=== PATIENT | male | born 1995 | race Caucasian/White ===

== ENCOUNTER 2019-01-07 08:48 | Observation (INO) ==
--- NOTE | 2019-01-07 08:50 | Emergency Department Note ---
Disposition Clinical Impression: Hypoxia Aspiration pneumonia Qualifiers: Aspiration pneumonia type: unspecified Laterality: right Lung location: lower lobe of lung Qualified Code(s): J69.0 - Pneumonitis due to inhalation of food and vomit Disposition: Admitted As Inpatient Condition: Fair Referrals: Robin Carlos MD [Primary Care Provider] - Forms: ED Satisfaction Letter SOB HPI - General Chief Complaint: ED Shortness of Breath/Dyspnea Stated Complaint: SHORTNESS OF BREATH Time Seen by Provider: 01/07/19 08:50 Source: patient, EMS Mode of arrival: EMS Limitations: altered mental status (Chronic) Nursing Notes Reviewed: Yes Vital Signs Reviewed: Yes - History of Present Illness Patient was evaluated yesterday for possible esophageal meat impaction. He is advised he waited in this facility transfer to [facility]. Delvin tolbert did undergo endoscopy with a completely normal esophagus, stomach and duodenum. [facility]. Today he had increased shortness of breath with a 4 L oxygen requirement. He is usually not on oxygen. He indicated that he had "junky" breathing. He was rapidly went without production of phlegm. His been brought in by EMS for evaluation and they have performed airway suctioning and reported a large amount of white phlegm. On arrival to our department the patient articulates that he is "a whole lot better". He denies chest pain or current shortness of breath. He denies fevers or chills. He states everything is "chest congestion". He indicates he is now swallowing without difficulty and that that is "doing a lot better". In being in our emergency department and [facility] he has likely been exposed to influenza A. He does not appear ill exposures. He is not having abdominal pain, nausea, vomiting or diarrhea. He denies a new extremity complaints. Pt Subjective Complaint: shortness of breath Onset (ago): day(s) (1) Context: recent illness, choking/aspiration Severity: moderate Consistency/Duration: now resolved Improves with: upright position, other (Suctioning) Worsens with: coughing Known history of: other (Post trach, traumatic brain injury) Associated symptoms: Reports: cough, sputum production. Denies: chest pain, pain with inspiration, fever, wheezing, orthopnea, lower extremity pain, polyuria, polydipsia, parasthesias, palpitations, hemoptysis, diaphoresis, nausea/vomiting, syncope, abdominal pain, rash Treatment prior to arrival: oxygen, other (Airway suctioning) Cough present: Yes Cough Description: Weak, Rattling Cough Frequency: Intermittent Sputum production: Yes Sputum Amount: Scant Sputum Color: White - Related Data Home oxygen amount: none Home Medications Medication Instructions Recorded Confirmed DULoxetine [Cymbalta] 30 mg PO BID 01/06/19 01/07/19 Famotidine [Pepcid] 20 mg PO DAILY 01/06/19 01/07/19 Gabapentin [Neurontin] 300 mg PO TID 01/06/19 01/07/19 Guaifenesin [Guaifenesin ER] 1,200 mg PO BID 01/06/19 01/07/19 LevETIRAcetam [Keppra] 500 mg PO TID 01/06/19 01/07/19 OLANZapine [Zyprexa] 5 mg PO BID 01/06/19 01/07/19 Oxycodone HCl [Oxaydo] 5 mg PO Q4H PRN 01/06/19 01/07/19 Quetiapine Fumarate [Seroquel] 50 mg PO DAILY 01/06/19 01/07/19 clonazePAM [Klonopin] 1 mg PO TID 01/06/19 01/07/19 Previous Rx's Medication Instructions Recorded Mag Hydrox/Al Hydrox/Simeth 15 ml PO Q6HR PRN #150 c 01/06/19 [Maalox] Allergies Allergy/AdvReac Type Severity Reaction Status Date / Time Penicillins Allergy Swelling Verified 01/06/19 21:02 of Lip/Tongue/Throat All systems ED: reviewed and negative except as stated. Past Medical History - Past Medical History Attestation: Yes The following information was validated with the patient. Source: old records reviewed, nursing notes reviewed Medical history: Reports: GERD, seizures, other (Traumatic brain injury, chronic respiratory insufficiency, elevated BMI) Surgical history: Reports: tracheostomy Psychiatric history: Reports: bipolar, schizophrenia - Social History Smoking Status: Never smoker Alcohol use: Reports: none Drug use: Reports: none Physical Exam - General Limitations: physical limitation General appearance: alert, in no apparent distress - Head Head exam: atraumatic, normocephalic, normal inspection - Eye Eye exam: Present: normal appearance, PERRL, EOMI. Absent: conjunctival injection - ENT ENT exam: normal exam, normal oropharynx, mucous membranes moist - Neck Neck exam: Present: normal inspection, full ROM, trachea midline, other (Stoma is without inflammatory change or blood/mucus around the stoma.) - Chest Chest inspection: Present: normal inspection, symmetric chest wall rise - Respiratory Respiratory exam: Present: other (Contacted upper airway sounds). Absent: respiratory distress, wheezes, prolonged expiratory phase Course Course Narrative: Patient is continuing to need to liters nasal cannula to support an oxygenation of 92%. He does not have a chronic oxygen dependency. With the congestion, recent possible esophageal obstruction or aspiration and relative hypoxia I believe he will need antibiotic coverage and observation. Baseline laboratory, IV fluids and antibiotics and ordered. A page has been placed to Dr. Carlos for inpatient observation. Vital Signs Temperature 99.4 F 01/07/19 08:52 Pulse Rate 95 01/07/19 08:52 Respiratory Rate 20 01/07/19 08:52 Blood Pressure 124/79 01/07/19 08:52 O2 Sat by Pulse Oximetry 98 01/07/19 08:52 Temperature 99.4 F 01/07/19 08:52 Pulse Rate 95 01/07/19 08:52 Respiratory Rate 20 01/07/19 08:52 Blood Pressure 124/79 01/07/19 08:52 O2 Sat by Pulse Oximetry 98 01/07/19 08:52 Oxygen Delivery Oxygen Delivery Nasal Cannula Shortness of Breath/Dyspnea - Differential Diagnosis Likely: acute exacerbation of chronic obstructive airways disease, pneumonia (Possible aspiration) - Medical Records Medical records reviewed: Yes I reviewed the patient's medical records. - Radiology Data Radiology results reviewed: Yes I reviewed the patient's radiology results. Single view chest x-rays performed. His demonstrates a poor inspiration with some vascular crowding. Question if there is a faint infiltrate in the right upper lobe. Patient's spine is scoliotic. Cardiac silhouette is slightly enlarged. This is on my interpretation. Impressions Chest X-Ray 01/07/19 09:02 IMPRESSION: Vascular congestion, with right perihilar disease, favored to be due to atelectasis, less likely pneumonia or focal edema. D/ / Vignesh Bennett MD / Vignesh Bennett MD Interpreting Provider: Vignesh Bennett MD Critical Care Time Critical Care Time: No
[2019-01-07] MEDS ORDERED: Azithromycin 500 MG in D5% in Water 250 ML IVPB ONE ×2 (09:41→12:39)
[2019-01-07] MEDS ORDERED: cefTRIAXone 2,000 MG in 0.9 % Sodium Chloride Mini Bag 100 ML IVPB ONE (09:41)
[2019-01-07] MEDS ORDERED: 0.9 % Sodium Chloride 1,000 ML IVC SCH (09:45)
[2019-01-07 10:31] LABS: Basophils % 0.2 %; Hematocrit 43.7 % (37.5-50.1); Hemoglobin 14.6 g/dL (12.9-16.9); Immature Granulocytes % 0.4 % (0-4); Lymphocytes % 5.1 %; Mean Corpuscular HGB Conc 33.4 g/dL (31.6-35.5); Mean Corpuscular Hemoglobin 29.9 pg (28.0-33.3); Mean Corpuscular Volume 89.4 fL (83.0-100.0); Mean Platelet Volume 10.6 fL (9.4-12.4); Monocytes # 1.4 K/mcL (0.0-1.3); Monocytes % 6.8 %; Platelet Count 270 K/mcL (140-400); Red Blood Count 4.89 M/mcL (4.19-5.50); Red Cell Distribution Width 12.3 % (11.5-14.5); Segmented Neutrophils % 87.5 %
[2019-01-07 10:41] LABS: Lymphocytes # 1.1 K/mcL (0.6-4.6)
[2019-01-07 10:51] LABS: BUN/Creatinine Ratio 17 (6-26); Blood Urea Nitrogen 8 mg/dL (6-20); Calcium 9.6 mg/dL (8.6-10.3); Carbon Dioxide 30 mEq/L (23-29); Chloride 103 mEq/L (98-107); Glucose 106 mg/dL (70-105); Osmolality,Calculated 295 (280-300); Potassium 4.2 mEq/L (3.5-5.1); Sodium 143 mEq/L (136-145); eGFR For Non-African Americans > 60 (> 60)
[2019-01-07] MEDS ORDERED: *HR* OxyCODONE Immed Rel 5 MG TABLET PO PRN (12:39)
[2019-01-07] MEDS ORDERED: Naloxone 0.4 MG/ML INJ IVP PRN (12:39)
[2019-01-07] MEDS ORDERED: Mag Hydrox/Al Hydrox/Simeth 30 ML UDC PO PRN (12:39)
[2019-01-07] MEDS ORDERED: Albuterol 2.5 MG/3 ML NEBULIZER IH PRN (12:39)
[2019-01-07] MEDS ORDERED: Ipratropium/Albuterol Neb 3 ML ONE (12:45)
[2019-01-07] MEDS: Ipratropium/Albuterol Neb 3 ML IH SCH ×2 (13:01→16:45)
[2019-01-07] MEDS: Azithromycin 500 MG in D5% in Water 250 ML IVPB SCH (13:09)
[2019-01-07] MEDS: 0.9 % Sodium Chloride 1,000 ML IVC SCH ×2 (13:10→22:27)
[2019-01-07] MEDS ORDERED: Isovue-370 500 ML BOTTLE IVP ONE ×2 (13:19→15:15)
[2019-01-07] MEDS ORDERED: Levofloxacin 750 MG/150 ML 750 MG/150 ML BAG IVPB SCH (15:00)
[2019-01-07] MEDS: levETIRAcetam 250 MG TABLET PO SCH ×2 (16:24→22:24)
[2019-01-07] MEDS: Gabapentin 300 MG CAPSULE PO SCH ×2 (16:24→22:24)
[2019-01-07] MEDS: clonazePAM 0.5 MG TABLET PO SCH ×2 (16:24→22:25)
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
[2019-01-07] MEDS: Clindamycin 600 MG/50 ML 600 MG/50 ML IV.SOLN IVPB SCH (22:23)
[2019-01-07] MEDS: OLANZapine 5 MG TAB.RAPDIS PO SCH (22:25)
[2019-01-07] MEDS: Lactobacillus 1 EACH CAP.SPRINK PO SCH (22:27)
[2019-01-08] MEDS: Clindamycin 600 MG/50 ML 600 MG/50 ML IV.SOLN IVPB SCH (02:06)
[2019-01-08] MEDS ORDERED: *HR* Enoxaparin 40 MG/0.4 ML SYRINGE SQ SCH (07:00)
[2019-01-08 07:06] LABS: Basophils % 0.4 %; Eosinophils # 0.1 K/mcL (0.0-0.6); Eosinophils % 0.8 %; Hematocrit 39.9 % (37.5-50.1); Hemoglobin 13.4 g/dL (12.9-16.9); Immature Granulocytes % 0.2 % (0-4); Lymphocytes # 1.9 K/mcL (0.6-4.6); Lymphocytes % 19.4 %; Mean Corpuscular HGB Conc 33.6 g/dL (31.6-35.5); Mean Corpuscular Hemoglobin 29.4 pg (28.0-33.3); Mean Corpuscular Volume 87.5 fL (83.0-100.0); Mean Platelet Volume 10.5 fL (9.4-12.4); Monocytes % 9.6 %; Platelet Count 219 K/mcL (140-400); Red Blood Count 4.56 M/mcL (4.19-5.50); Red Cell Distribution Width 12.4 % (11.5-14.5); Segmented Neutrophils % 69.6 %
[2019-01-08 07:12] VITALS: BP 117/83
[2019-01-08 07:21] LABS: BUN/Creatinine Ratio 21 (6-26); Blood Urea Nitrogen 8 mg/dL (6-20); Carbon Dioxide 28 mEq/L (23-29); Chloride 103 mEq/L (98-107); Glucose 99 mg/dL (70-105); Osmolality,Calculated 288 (280-300); Potassium 3.7 mEq/L (3.5-5.1); Sodium 140 mEq/L (136-145); eGFR For Non-African Americans > 60 (> 60)
[2019-01-08] MEDS: OLANZapine 5 MG TAB.RAPDIS PO SCH (07:52)
[2019-01-08] MEDS: levETIRAcetam 250 MG TABLET PO SCH (07:52)
[2019-01-08] MEDS: Lactobacillus 1 EACH CAP.SPRINK PO SCH (07:52)
[2019-01-08] MEDS: Gabapentin 300 MG CAPSULE PO SCH (07:52)
[2019-01-08] MEDS: clonazePAM 0.5 MG TABLET PO SCH (07:53)
[2019-01-08] MEDS ORDERED: Clindamycin 600 MG/50 ML 600 MG/50 ML IV.SOLN IVPB SCH (08:00)
[2019-01-08] MEDS ORDERED: Famotidine 20 MG TABLET PO SCH (09:00)
[2019-01-08] MEDS ORDERED: cefTRIAXone 2,000 MG in 0.9 % Sodium Chloride Mini Bag 100 ML IVPB SCH (10:00)
[2019-01-08] MEDS: Azithromycin 500 MG in D5% in Water 250 ML IVPB SCH (13:26)
--- NOTE | 2019-01-08 16:38 | Discharge Summary ---
Orders not resulted at time of discharge: Pending orders 01/07/19 10:50 Culture,Blood [BC] Stat Date of Encounter: 01/08/19 Time of Encounter: 16:30 - Discharge Diagnosis (1) Aspiration pneumonia Priority: Primary Status: Acute Qualifiers: Aspiration pneumonia type: unspecified Laterality: right Lung location: lower lobe of lung Qualified Code(s): J69.0 - Pneumonitis due to inhalation of food and vomit (2) Bipolar 1 disorder Priority: Secondary Status: Chronic Hospital course: Mr. Wiggins is a 23 year old male who came to emergency room after staff at the [facility] stated he complained of dyspnea and required additional oxygen to maintain adequate saturation. He was evaluated in emergency room and was felt to have possible pneumonia. He was admitted to [facility] floor for ongoing care needs. Initial orders were written by the emergency room physician. I saw him on January 07 and performed a history and physical. He was started on Rocephin in emergency room for right lung pneumonia. I changed him to IV Levaquin with Zithromax and clindamycin and Lactobacillus. On the evening of January 07 while being repositioned he coughed and a chunk of meat maximum diameter 6 cm was expelled from his posterior pharynx. He had significant improvement in breathing following this. Follow-up labs in January 08 showed WBC normal at 10.0 with resolution of left shift. Modified barium study was done to assess his swallowing capability safety. It was recommended he have regular diet with nectar thick liquids and this will be instituted the [facility]. Lactic acid normalized to 0.7 by the morning of January 08. He wished to be discharged back to the [facility] of January 08. He will follow with me there. - Time Spent with Patient Total time spent providing and/or coordinating discharge services: - Discharge Medications Prescriptions: New Clindamycin HCl 300 mg PO Q8H 3 Days capsule Lactobacillus [Culturelle] 1 each PO BID 3 Days cap.sprink levoFLOXacin [Levaquin] 750 mg PO DAILY 3 Days tablet Continue DULoxetine [Cymbalta] 30 mg PO BID clonazePAM [Klonopin] 1 mg PO TID Quetiapine Fumarate [Seroquel] 50 mg PO DAILY Oxycodone HCl [Oxaydo] 5 mg PO Q4H PRN PRN Reason: Pain LevETIRAcetam [Keppra] 500 mg PO TID Guaifenesin [Guaifenesin ER] 1,200 mg PO BID Gabapentin [Neurontin] 300 mg PO TID Famotidine [Pepcid] 20 mg PO DAILY OLANZapine [Zyprexa] 5 mg PO BID Mag Hydrox/Al Hydrox/Simeth [Maalox] 15 ml PO Q6HR PRN #150 udc PRN Reason: throat pain Home Medications: DULoxetine [Cymbalta] 30 mg PO BID 01/06/19 [History] Famotidine [Pepcid] 20 mg PO DAILY 01/06/19 [History] Gabapentin [Neurontin] 300 mg PO TID 01/06/19 [History] Guaifenesin [Guaifenesin ER] 1,200 mg PO BID 01/06/19 [History] LevETIRAcetam [Keppra] 500 mg PO TID 01/06/19 [History] Mag Hydrox/Al Hydrox/Simeth [Maalox] 15 ml PO Q6HR PRN #150 udc 01/06/19 [Rx] OLANZapine [Zyprexa] 5 mg PO BID 01/06/19 [History] Oxycodone HCl [Oxaydo] 5 mg PO Q4H PRN 01/06/19 [History] Quetiapine Fumarate [Seroquel] 50 mg PO DAILY 01/06/19 [History] clonazePAM [Klonopin] 1 mg PO TID 01/06/19 [History] Clindamycin HCl 300 mg PO Q8H 3 Days capsule 01/08/19 [Rx] Lactobacillus [Culturelle] 1 each PO BID 3 Days cap.sprink 01/08/19 [Rx] levoFLOXacin [Levaquin] 750 mg PO DAILY 3 Days tablet 01/08/19 [Rx] Allergies/Adverse Reactions: Allergy/AdvReac Type Severity Reaction Status Date / Time Penicillins Allergy Swelling Verified 01/06/19 21:02 of Lip/Tongue/Throat Date of admission: 01/07/19 10:05 Primary care physician: Robin Carlos MD Consults: 01/07/19 18:10 Consult to Speech Therapy [CONS] Routine Comment: Evaluate, develop and implement POC Reason for Consult: aspiration pneumonia Call Completed: No - Constitutional Vitals: Temp Pulse Resp BP Pulse Ox 99 F 76 14 117/83 97 01/08/19 07:03 02/19/19 07:03 01/08/19 07:03 01/08/19 07:03 01/08/19 07:03 - Patient Status Disposition: Transfer SNF Condition: Fair - Discharge Instructions Follow Up With: Robin Carlos MD [Primary Care Provider] - 1 week - Diet and Activity Activity: resume usual activities as tolerated Diet: other ([place] thick liquids), regular diet
--- NOTE | 2019-01-08 16:42 | Physician Discharge Referral ---
ExtendedCare Referral Info Transfer To: [facility] Provider in Charge: Terrance Provider in Charge after Transfer: PCP (Terrance) - Diagnosis (1) Aspiration pneumonia Priority: Primary Status: Acute (2) Bipolar 1 disorder Priority: Secondary Status: Chronic Prognosis: Good Aware of Diagnosis: Patient Aware of Prognosis: Patient - Transfer Medications Prescriptions: Clindamycin HCl 300 mg PO Q8H 3 Days capsule levoFLOXacin [Levaquin] 750 mg PO DAILY 3 Days tablet Home Medications: DULoxetine [Cymbalta] 30 mg PO BID 01/06/19 [History] Famotidine [Pepcid] 20 mg PO DAILY 01/06/19 [History] Gabapentin [Neurontin] 300 mg PO TID 01/06/19 [History] Guaifenesin [Guaifenesin ER] 1,200 mg PO BID 01/06/19 [History] LevETIRAcetam [Keppra] 500 mg PO TID 01/06/19 [History] Mag Hydrox/Al Hydrox/Simeth [Maalox] 15 ml PO Q6HR PRN #150 udc 01/06/19 [Rx] OLANZapine [Zyprexa] 5 mg PO BID 01/06/19 [History] Oxycodone HCl [Oxaydo] 5 mg PO Q4H PRN 01/06/19 [History] Quetiapine Fumarate [Seroquel] 50 mg PO DAILY 01/06/19 [History] clonazePAM [Klonopin] 1 mg PO TID 01/06/19 [History] Clindamycin HCl 300 mg PO Q8H 3 Days capsule 01/08/19 [Rx] Lactobacillus [Culturelle] 1 each PO BID 3 Days cap.sprink 01/08/19 [Rx] levoFLOXacin [Levaquin] 750 mg PO DAILY 3 Days tablet 01/08/19 [Rx] Allergies/Adverse Reactions: Allergy/AdvReac Type Severity Reaction Status Date / Time Penicillins Allergy Swelling Verified 01/06/19 21:02 of Lip/Tongue/Throat - Respiratory Orders Smoking Cessation: Smoking cessation has been advised. For more information, call the [place] Tobacco Quit Line at 2-167-NNZM-NOW. - Rehabiliation Orders Rehab Potential: Poor - Diet Orders Regular ([place] thick liquids) CERTIFICATION: I certify that the transfer of the above named patient to an Extended Care Facility is necessary for the continuing treatment of the diagnosis listed. The above information is true and accurate reflection of patient's current condition. Confidential - Redisclosure prohibited without a patient's written consent.
== END 2019-01-08 19:00 ==
LOC: EMEROOPIK 08:48 → INPPIK 08:48
PROVIDERS: ADMIT Internal Medicine; ATTEND Internal Medicine